=== PATIENT | male | born 1980 | race Caucasian/White ===

== ENCOUNTER 2016-09-18 20:12 | Emergency (ER) ==
[2016-09-18 20:15] VITALS: BMI 22.9
[2016-09-18 20:22] VITALS: BP 115/69; TEMP 98.5
--- NOTE | 2016-09-18 20:33 | ED.PDOC ---
General ED Provider: Dr. CATRACHO AMEZQUITA-ER Chief Complaint: Non-specific Complaint Stated Complaint: neelam got mrsa--im taking a friends keflex but its not helping Time Seen by Physician: 20:31 Mode of Arrival: Walk-In Information Source: Patient Exam Limitations: No limitations Nursing and Triage Documentation Reviewed and Agree: Yes Skin Complaint Exam - Skin/Soft Tissue Complaint/Exam Onset/Duration: 2 days Symptoms Are: Still present Initial Severity: Mild Current Severity: Mild Location: right buttock and left knee Character: Reports: Redness, Swelling, Raised, Painful Aggravating: Reports: None Alleviating: Reports: None Associated Signs and Symptoms: Denies: Fever, Chills, Itching, Drainage, Bruising, Tenderness, Red streaks, Joint swelling 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 Surgical History: Reports: None Recent Exposure to Others w/Similar Symptoms: No Skin Findings: Present: Erythema, Pustules Joint Tenderness Present: No Differential Diagnoses: Abscess, Cellulitis, MRSA Review of Systems - Review Of Systems Constitutional: Reports: No symptoms Eyes: Reports: No symptoms Ears, Nose, Mouth, Throat: Reports: No symptoms Respiratory: Reports: No symptoms Cardiac: Reports: No symptoms GI: Reports: No symptoms : Reports: No symptoms Musculoskeletal: Reports: No symptoms Skin: Reports: Lumps Neurological: Reports: No symptoms Endocrine: Reports: No symptoms Hematologic/Lymphatic: Reports: No symptoms All Other Systems: Reviewed and Negative Past Medical History - Past Medical History Previously Healthy: Yes Endocrine: Reports: None Cardiovascular: Reports: None Respiratory: Reports: None Hematological: Reports: None Gastrointestinal: Reports: None Genitourinary: Reports: None Neuro/Psych: Reports: None Musculoskeletal: Reports: None Cancer: Reports: None - Surgical History General Surgical History: Reports: None - Family History Family History: Reports: None - Social History Smoking Status: Former smoker, Chews tobacco Hx Substance Use: Yes (MARIJUANA) Alcohol Screening: None Lives: With family - Immunizations Tetanus Shot up to Date: Yes (2 YEARS AGO) Physical Exam - Physical Exam Appearance: Well-appearing, No pain distress, Well-nourished Eyes: JOSIE, EOMI, Conjunctiva clear ENT: Ears normal, Nose normal, Oropharynx normal Neck: Supple Respiratory: Airway patent, Breath sounds clear, Breath sounds equal, Respirations nonlabored Cardiovascular: RRR, Pulses normal, No rub, No murmur GI/: Soft, Nontender, No masses, Bowel sounds normal, No Organomegaly Musculoskeletal: Normal strength, ROM intact, No edema, No calf tenderness Skin: Warm, Dry, Normal color Neurological: Sensation intact, Motor intact, Reflexes intact, Cranial nerves intact, Alert, Oriented Psychiatric: Affect appropriate Critical Care Note - Critical Care Note Total Time (mins): 0 Course - Course Vital Signs: Temp Pulse Resp BP Pulse Ox 09/18/16 20:15 98.5 F 83 20 115/69 96 Departure - Departure Time of Disposition: 20:32 Disposition: HOME SELF-CARE Discharge Problem: Folliculitis Instructions: Folliculitis (ED) Condition: Good Pt referred to PMD for follow-up: Yes Additional Instructions: clindamycin 150mg tid x7 days--f/u with pcp Allergies/Adverse Reactions: Allergies No Known Allergies Allergy (Verified 09/18/16 20:22) Home Medications: Ambulatory Orders Clonazepam [Klonopin] 1 mg PO BEDTIME 05/06/16 Fluoxetine HCl [Prozac] 40 mg PO DAILY 05/06/16 Ibuprofen 400 mg PO TID 05/06/16 Cephalexin [Keflex] 500 mg PO Q8HR 09/18/16 Disposition Discussed With: Patient, Family
== END 2016-09-18 20:40 | disposition home or self-care (01) ==
LOC: ED 20:12
DX: L73.9 Follicular disorder, unspecified (principal)
CPT/HCPCS: 99282